=== PATIENT | female | born 1985 | race Caucasian/White ===

== ENCOUNTER 2017-03-14 13:30 | Inpatient (IN) | payer OTHER ==
[2017-03-14 14:54] VITALS: BMI 22.3
--- NOTE | 2017-03-14 16:56 | HP ---
CIWA Score - CIWA Score Nausea/Vomitin Muscle Tremors: 3 Anxiety: 3 Agitation: 3 Paroxysmal Sweats: 1-Minimal Palms Moist Orientation: 0-Oriented Tacttile Disturbances: 2-Mild Itch/Numbness/Burn Auditory Disturbances: 2-Mild Harshness/Frighten Visual Disturbances: 0-None Headache: 2-Mild CIWA-Ar Total Score: 19 Admission ROS BHS - HPI Chief Complaint: i need help to stop drinking alcohol refer fro [place] Allergies/Adverse Reactions: Allergies Allergy/AdvReac Type Severity Reaction Status Date / Time No Known Allergies Allergy Verified 03/14/17 15:59 History of Present Illness: this 31 years old female with alcohol dependence,seeking detox,seen in [place], last treatment 01/15 [facility] syncope seizure in anxiety,depression and insomnia multiple admissions keep relapsing longest period of sobriety 5 years Exam Limitations: No Limitations - Ebola screening Have you traveled outside of the country in the last 21 days: No (Y) Have you had contact with anyone from an Ebola affected area: No Have you been sick,other than usual withdrawal symptoms: No Do you have a fever: No - Review of Systems Constitutional: Loss of Appetite, Malaise, Night Sweats, Changes in sleep EENT: reports: Tearing, Nose Congestion Respiratory: reports: No Symptoms reported Cardiac: reports: Palpitations GI: reports: Diarrhea, Nausea, Vomiting, Abdominal cramping : reports: No Symptoms Reported Musculoskeletal: reports: Muscle Pain Integumentary: reports: Dryness Neuro: reports: Headache, Seizure Endocrine: reports: No Symptoms Reported Hematology: reports: No Symptoms Reported Psychiatric: reports: Anxious (insomnia), Depressed Patient History - Patient Medical History Hx Anemia: No Hx Asthma: No Hx Chronic Obstructive Pulmonary Disease (COPD): No Hx Cancer: No Hx Cardiac Disorders: No Hx Congestive Heart Failure: No Hx Hypertension: No Hx Hypercholesterolemia: No Hx Pacemaker: No HX Cerebrovascular Accident: No Hx Seizures: Yes (6 yrs ago) Hx Diabetes: No Hx Gastrointestinal Disorders: No Hx Liver Disease: No Hx Genitourinary Disorders: No Hx Sexually Transmitted Disorders: No Hx Renal Disease (ESRD): No Hx Hepatitis C: No Hx Depression: Yes (anxiety,insomnia) Hx Suicide Attempt: No Hx Schizophrenia: No Other Medical History: no suicidal,no homicidal - Patient Surgical History Past Surgical History: No - PPD History Previous Implant?: Yes Documented Results: Negative w/o proof Implanted On Prior R Admission?: No PPD to be Administered?: Yes - Reproductive History Patient is a Female of Child Bearing Age (11 -55 yrs old): Yes Last Menstrual Period: 03/07/17 Patient : No - Smoking Cessation Smoking history: Current every day smoker Have you smoked in the past 12 months: Yes Aproximately how many cigarettes per day: 10 Hx Chewing Tobacco Use: No Initiated information on smoking cessation: Yes 'Breaking Loose' booklet given: 03/14/17 - Substance & Tx. History Hx Alcohol Use: Yes Hx Substance Use: No Substance Use Type: Alcohol Hx Substance Use Treatment: Yes (methamphetamine) - Substances Abused Alcohol Route: Oral Frequency: Daily Amount used: Vodka( a emilia) Age of first use: 9 Date of Last Use: 03/13/17 Methamphetamine Route: Smoking Frequency: Daily Amount used: 8 ball Age of first use: 16 Date of Last Use: 03/10/17 Family Disease History - Family Disease History Family History: Denies Admission Physical Exam [facility] - Vital Signs Vital Signs: Vital Signs - 24 hr 03/14/17 14:51 Temperature 97.8 F Pulse Rate 108 H Respiratory 18 Rate Blood Pressure 138/79 - Physical General Appearance: Yes: Moderate Distress, Tremorous, Sweating, Anxious HEENTM: Yes: EOMI, ZAIN, Pharynx Normal Respiratory: Yes: Lungs Clear, Normal Breath Sounds, No Respiratory Distress Neck: Yes: Within Normal Limits, Supple, Trachea in good position Breast: Yes: Breast Exam Deferred Cardiology: Yes: Tachycardia Abdominal: Yes: Within Normal Limits, Normal Bowel Sounds, Non Tender, Soft Genitourinary: Yes: Within Normal Limits Back: Yes: Muscle Spasm Musculoskeletal: Yes: Back pain, Muscle Pain Extremities: Yes: Tremors Neurological: Yes: legal consultant II-XII NML intact, Fully Oriented, Alert, Motor Strength 5/5 Integumentary: Yes: Dry Lymphatic: Yes: Within Normal Limits - Diagnostic (1) Alcohol dependence with uncomplicated withdrawal Current Visit: Yes Status: Acute (2) Alcohol related seizure Current Visit: Yes Status: Acute (3) Syncope Current Visit: Yes Status: Acute (4) Insomnia secondary to depression with anxiety Current Visit: Yes Status: Acute Cleared for Admission [facility] - Detox or Rehab [facility] Level of Care: Medically Managed Detox Regimen/Protocol: Librium BHS Breath Alcohol Content Breath Alcohol Content: 0 Urine Pregancy Test - Result Urine Test Results: Negative- NO Line Present Urine Drug Screen - Results Drug Screen Negative: No Urine Drug Screen Results: TCA-Tricyclic Antidepress
[2017-03-14] MEDS ORDERED: MAGNESIUM HYDROX 2400MG/30ML ORAL SUSPENSION 30 ML CUP PO PRN (17:07)
[2017-03-14] MEDS ORDERED: MENTHOL/PHENOL 1 EACH UD MM PRN (17:07)
[2017-03-14] MEDS ORDERED: MAG HYDROX/AL HYDROX/SIMETH 30 ML UNIT-DOSE CUP PO PRN (17:07)
[2017-03-14] MEDS ORDERED: LOPERAMIDE HCL 2 MG CAPSULE PO PRN (17:07)
[2017-03-14] MEDS ORDERED: ACETAMINOPHEN 325 MG TABLET (FP) PO PRN (17:07)
[2017-03-14] MEDS ORDERED: MAGNESIUM CITRATE 300 ML BOTTLE PO PRN (17:07)
[2017-03-14] MEDS ORDERED: P-EPHED 60MG/TRIPROLIDI 2.5MG TABLET PO PRN (17:07)
[2017-03-14] MEDS ORDERED: IBUPROFEN 400 MG TABLET (FP) PO PRN (17:07)
[2017-03-14] MEDS ORDERED: guaiFENesin/D-METHORPHAN HB 10 ML UNIT-DOSE CUPS PO PRN (17:07)
[2017-03-14] MEDS ORDERED: NICOTINE POLACRILEX 2 MG GUM BC PRN (17:07)
[2017-03-14] MEDS ORDERED: chlordiazePOXIDE HCL 25 MG CAPSULE PO ONE (17:10)
[2017-03-14] MEDS: THIAMINE HCL 100 MG TABLET (FP) PO SCH (22:32)
[2017-03-14] MEDS: diphenhydrAMINE HCL 50 MG CAPSULE PO PRN (22:32)
[2017-03-14] MEDS: chlordiazePOXIDE HCL 25 MG CAPSULE PO SCH (22:32)
[2017-03-15] MEDS: chlordiazePOXIDE HCL 25 MG CAPSULE PO SCH ×4 (05:22→22:43)
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
[2017-03-15] MEDS ORDERED: TRIMETHOBENZAMIDE HCL 200MG/2ML INJ IM PRN (09:40)
[2017-03-15] MEDS: PRENATAL VITAMINS W/ FOLIC ACID TABLET (FP) PO SCH (10:55)
[2017-03-15 11:37] LABS: MCH 33.5 pg (25.7-33.7); MCHC 33.6 g/dl (32.0-36.0); MEAN CELL VOLUME 99.6 fl (80-96); MEAN PLT VOLUME 8.2 fl (7.5-11.1); PLATELET COUNT 193 K/MM3 (134-434); RDW 12.7 % (11.6-15.6); WHITE BLOOD COUNT 8.4 K/mm3 (4.0-10.0)
[2017-03-15 12:02] LABS: ALBUMIN 3.8 g/dl (3.4-5.0); ALK PHOS 63 U/L (45-117); ANION GAP 9 (8-16); BILIRUBIN,TOTAL 2.5 mg/dL (0.2-1.0); CALCIUM 9.1 mg/dL (8.5-10.1); CO2 34 mmol/L (21-32); CREATININE 0.6 mg/dL (0.55-1.02); GLUCOSE,RANDOM 93 mg/dL (74-106); SGOT/AST 88 U/L (15-37); SGPT/ALT 61 U/L (12-78); TOT PROT 7.5 g/dl (6.4-8.2)
[2017-03-15 12:17] LABS: HIV 1 & 2 AB NEGATIVE; HIV 1 AGp24 NEGATIVE
--- NOTE | 2017-03-15 15:11 | PN ---
S CIWA - CIWA Score Nausea/Vomitin Muscle Tremors: 3 Anxiety: 3 Agitation: 3 Paroxysmal Sweats: 1-Minimal Palms Moist Orientation: 0-Oriented Tacttile Disturbances: 1-Very Mild Itch/Numbness Auditory Disturbances: 1-Very Mild Visual Disturbances: 0-None Headache: 2-Mild CIWA-Ar Total Score: 17 BHS Progress Note (SOAP) Subjective: ALERT,IRRITABLE,ANXIOUS,INTERRUPTED SLEEP,TREMOR,,VOMITING Objective: 03/15/17 15:08 Vital Signs Temperature 97 F L 03/15/17 11:14 Pulse Rate 140 H 03/15/17 11:14 Respiratory Rate 16 03/15/17 11:14 Blood Pressure 121/84 03/15/17 11:14 O2 Sat by Pulse Oximetry (%) EKG NSR NO CHEST PAIN,NO SOB,NO DIZZINESS Laboratory Last Values WBC 8.4 K/mm3 (4.0-10.0) 03/15/17 07:45 RBC 4.01 M/mm3 (3.60-5.2) 03/15/17 07:45 Hgb 13.4 GM/dL (10.7-15.3) 03/15/17 07:45 Hct 39.9 % (32.4-45.2) 03/15/17 07:45 MCV 99.6 fl (80-96) H 03/15/17 07:45 MCH 33.5 pg (25.7-33.7) 03/15/17 07:45 MCHC 33.6 g/dl (32.0-36.0) 03/15/17 07:45 RDW 12.7 % (11.6-15.6) 03/15/17 07:45 Plt Count 193 K/MM3 (134-434) 03/15/17 07:45 MPV 8.2 fl (7.5-11.1) 03/15/17 07:45 Sodium 136 mmol/L (136-145) 03/15/17 07:45 Potassium 3.4 mmol/L (3.5-5.1) L 03/15/17 07:45 Chloride 93 mmol/L (98-107) L 03/15/17 07:45 Carbon Dioxide 34 mmol/L (21-32) H 03/15/17 07:45 Anion Gap 9 (8-16) 03/15/17 07:45 BUN 21 mg/dL (7-18) H 03/15/17 07:45 Creatinine 0.6 mg/dL (0.55-1.02) 03/15/17 07:45 Creat Clearance w eGFR > 60 (>60) 03/15/17 07:45 Random Glucose 93 mg/dL (74-106) 03/15/17 07:45 Calcium 9.1 mg/dL (8.5-10.1) 03/15/17 07:45 Total Bilirubin 2.5 mg/dL (0.2-1.0) H 03/15/17 07:45 AST 88 U/L (15-37) H 03/15/17 07:45 ALT 61 U/L (12-78) 03/15/17 07:45 Alkaline Phosphatase 63 U/L (45-117) 03/15/17 07:45 Total Protein 7.5 g/dl (6.4-8.2) 03/15/17 07:45 Albumin 3.8 g/dl (3.4-5.0) 03/15/17 07:45 RPR Titer Nonreactive (NONREACTIVE) 03/15/17 07:45 HIV 1&2 Antibody Screen Negative 03/15/17 07:45 HIV P24 Antigen Negative 03/15/17 07:45 Assessment: 03/15/17 15:09 WITHDRAWAL SYMPTOM Plan: CONTINUE DETOX,K DUR 20 MEQ PO DAILY FOR HYPOKALEMIA K IS 3.4 REPEAT CMP,INR IN M
[2017-03-15] MEDS ORDERED: POTASSIUM CHLORIDE TABS 10 MEQ TABLET.ER (FP) PO SCH (15:15)
[2017-03-15] MEDS ORDERED: POTASSIUM CHLORIDE TABS 20 MEQ TABLET.ER (FP) PO SCH (15:31)
[2017-03-15] MEDS: POTASSIUM CHLORIDE TABS 20 MEQ TABLET.ER (FP) PO SCH (15:40)
[2017-03-15] MEDS ORDERED: FLU VACCINE QUAD 60 MCG/0.5 ML (MDV 17-18) IM ONE ×2 (16:00→17:00)
[2017-03-15] MEDS: chlordiazePOXIDE HCL 25 MG CAPSULE PO PRN (20:28)
[2017-03-15] MEDS ORDERED: traZODone HCL 50 MG TABLET (FP) PO SCH (22:00)
[2017-03-15] MEDS: diphenhydrAMINE HCL 50 MG CAPSULE PO PRN (22:43)
[2017-03-15] MEDS: traZODone HCL 50 MG TABLET (FP) PO SCH (22:43)
[2017-03-15] MEDS: THIAMINE HCL 100 MG TABLET (FP) PO SCH (22:43)
[2017-03-16] MEDS: chlordiazePOXIDE HCL 25 MG CAPSULE PO SCH ×3 (06:00→17:10)
[2017-03-16 09:52] LABS: ALBUMIN 3.6 g/dl (3.4-5.0); ANION GAP 9 (8-16); CO2 31 mmol/L (21-32); GLUCOSE,RANDOM 99 mg/dL (74-106)
[2017-03-16 09:56] LABS: ALK PHOS 64 U/L (45-117); BILIRUBIN,TOTAL 1.1 mg/dL (0.2-1.0); CALCIUM 9.2 mg/dL (8.5-10.1); CREATININE 0.6 mg/dL (0.55-1.02); SGOT/AST 100 U/L (15-37); SGPT/ALT 80 U/L (12-78); TOT PROT 7.1 g/dl (6.4-8.2)
[2017-03-16 10:02] LABS: INR 0.94 (0.82-1.09); PROTHROMBIN TIME (PATIENT) 10.6 SEC (9.98-11.88)
[2017-03-16] MEDS: PRENATAL VITAMINS W/ FOLIC ACID TABLET (FP) PO SCH (11:00)
[2017-03-16] MEDS: POTASSIUM CHLORIDE TABS 20 MEQ TABLET.ER (FP) PO SCH (11:01)
--- NOTE | 2017-03-16 11:33 | PN ---
S CIWA - CIWA Score Nausea/Vomitin-No Nausea/No Vomiting Muscle Tremors: 4-Moderate,w/Arms Extend Anxiety: 3 Agitation: 3 Paroxysmal Sweats: 3 Orientation: 0-Oriented Tacttile Disturbances: 0-None Auditory Disturbances: 0-None Visual Disturbances: 0-None Headache: 0-None Present CIWA-Ar Total Score: 13 S Progress Note (SOAP) Subjective: agitation sweats shakes interrupted sleep irritable Objective: 03/16/17 11:32 Vital Signs Temperature 96.8 F L 03/16/17 11:22 Pulse Rate 123 H 03/16/17 11:22 Respiratory Rate 18 03/16/17 11:22 Blood Pressure 100/76 03/16/17 11:22 O2 Sat by Pulse Oximetry (%) Laboratory Tests 03/15/17 03/15/17 03/15/17 07:45 07:45 07:45 WBC 8.4 RBC 4.01 Hgb 13.4 Hct 39.9 MCV 99.6 H MCH 33.5 MCHC 33.6 RDW 12.7 Plt Count 193 MPV 8.2 PT with INR INR Sodium 136 Potassium 3.4 L Chloride 93 L Carbon Dioxide 34 H Anion Gap 9 BUN 21 H Creatinine 0.6 Creat Clearance w eGFR > 60 Random Glucose 93 Calcium 9.1 Total Bilirubin 2.5 H AST 88 H ALT 61 Alkaline Phosphatase 63 Total Protein 7.5 Albumin 3.8 RPR Titer HIV 1&2 Antibody Screen Negative HIV P24 Antigen Negative 03/15/17 03/16/17 03/16/17 07:45 07:00 07:00 WBC RBC Hgb Hct MCV MCH MCHC RDW Plt Count MPV PT with INR 10.60 INR 0.94 Sodium 138 Potassium 3.6 Chloride 98 Carbon Dioxide 31 Anion Gap 9 BUN 21 H Creatinine 0.6 Creat Clearance w eGFR > 60 Random Glucose 99 Calcium 9.2 Total Bilirubin 1.1 H D AST 100 H ALT 80 H D Alkaline Phosphatase 64 Total Protein 7.1 Albumin 3.6 RPR Titer Nonreactive HIV 1&2 Antibody Screen HIV P24 Antigen aaox3 ambulating no acute distress Assessment: 03/16/17 11:32 withdrawal sx Plan: continue detox increase fluids
[2017-03-16] MEDS: hydrOXYzine PAMOATE 50 MG CAPSULE (FP) PO PRN (13:55)
[2017-03-16] MEDS: chlordiazePOXIDE HCL 25 MG CAPSULE PO PRN (15:41)
[2017-03-16] MEDS ORDERED: ONDANSETRON *ODT* 4 MG TABLET SL PRN (15:59)
[2017-03-16] MEDS ORDERED: cloNIDine HCL 0.1 MG TABLET PO ONE (17:00)
[2017-03-16 18:25] LABS: URINE APPEARANCE SLCLOUDY; URINE BILIRUBIN NEGATIVE (NEGATIVE); URINE BLOOD NEGATIVE (NEGATIVE); URINE COLOR AMBER; URINE GLUCOSE (UA) NEGATIVE (NEGATIVE); URINE KETONE NEGATIVE (NEGATIVE); URINE NITRITE NEGATIVE (NEGATIVE); URINE PROTEIN NEGATIVE (NEGATIVE); URINE UROBILINOGEN 4.0 E.U/dl mg/dL (0.2-1.0)
[2017-03-16 22:24] LABS: URINE LEUK ESTERASE Negative (NEGATIVE)
[2017-03-16] MEDS: diphenhydrAMINE HCL 50 MG CAPSULE PO PRN (22:30)
[2017-03-16] MEDS: traZODone HCL 50 MG TABLET (FP) PO SCH (22:30)
[2017-03-16] MEDS: chlordiazePOXIDE 5 MG CAPSULE PO SCH (22:31)
[2017-03-16] MEDS: THIAMINE HCL 100 MG TABLET (FP) PO SCH (22:31)
[2017-03-17] MEDS: chlordiazePOXIDE 5 MG CAPSULE PO SCH ×3 (06:37→17:47)
--- NOTE | 2017-03-17 07:24 | EKG ---
Test Reason : Blood Pressure : / mmHG Vent. Rate : 091 BPM Atrial Rate : 091 BPM P-R Int : 134 ms QRS Dur : 088 ms QT Int : 382 ms P-R-T Axes : 062 059 045 degrees QTc Int : 469 ms NORMAL SINUS RHYTHM POSSIBLE LEFT ATRIAL ENLARGEMENT BORDERLINE ECG NO PREVIOUS ECGS AVAILABLE Confirmed by GRAEME RAM, HINA ([id number]) on 03/17/2017 7:23:47 AM Referred By: Jeevan Phillip Confirmed By:HINA BEDOLLA MD
[2017-03-17] MEDS: hydrOXYzine PAMOATE 50 MG CAPSULE (FP) PO PRN (08:45)
[2017-03-17] MEDS ORDERED: valACYclovir HCL 500 MG TABLET (FP) PO ONE (09:04)
--- NOTE | 2017-03-17 09:31 | PN ---
BHS Progress Note (SOAP) Subjective: I have a UTI sweats agitation cold sore on lip Objective: 03/17/17 09:26 Vital Signs Temperature 97.7 F 03/17/17 06:54 Pulse Rate 76 03/17/17 06:54 Respiratory Rate 18 03/17/17 06:54 Blood Pressure 89/65 03/17/17 06:54 O2 Sat by Pulse Oximetry (%) Laboratory Tests 03/15/17 03/15/17 03/15/17 07:45 07:45 07:45 WBC 8.4 RBC 4.01 Hgb 13.4 Hct 39.9 MCV 99.6 H MCH 33.5 MCHC 33.6 RDW 12.7 Plt Count 193 MPV 8.2 PT with INR INR Sodium 136 Potassium 3.4 L Chloride 93 L Carbon Dioxide 34 H Anion Gap 9 BUN 21 H Creatinine 0.6 Creat Clearance w eGFR > 60 Random Glucose 93 Calcium 9.1 Total Bilirubin 2.5 H AST 88 H ALT 61 Alkaline Phosphatase 63 Total Protein 7.5 Albumin 3.8 Urine Color Urine Appearance Urine pH Ur Specific [place] Urine Protein Urine Glucose (UA) Urine Ketones Urine Blood Urine Nitrite Urine Bilirubin Urine Urobilinogen Ur Leukocyte Esterase RPR Titer HIV 1&2 Antibody Screen Negative HIV P24 Antigen Negative 03/15/17 03/16/17 03/16/17 07:45 07:00 07:00 WBC RBC Hgb Hct MCV MCH MCHC RDW Plt Count MPV PT with INR 10.60 INR 0.94 Sodium 138 Potassium 3.6 Chloride 98 Carbon Dioxide 31 Anion Gap 9 BUN 21 H Creatinine 0.6 Creat Clearance w eGFR > 60 Random Glucose 99 Calcium 9.2 Total Bilirubin 1.1 H D AST 100 H ALT 80 H D Alkaline Phosphatase 64 Total Protein 7.1 Albumin 3.6 Urine Color Urine Appearance Urine pH Ur Specific [place] Urine Protein Urine Glucose (UA) Urine Ketones Urine Blood Urine Nitrite Urine Bilirubin Urine Urobilinogen Ur Leukocyte Esterase RPR Titer Nonreactive HIV 1&2 Antibody Screen HIV P24 Antigen 03/16/17 15:45 WBC RBC Hgb Hct MCV MCH MCHC RDW Plt Count MPV PT with INR INR Sodium Potassium Chloride Carbon Dioxide Anion Gap BUN Creatinine Creat Clearance w eGFR Random Glucose Calcium Total Bilirubin AST ALT Alkaline Phosphatase Total Protein Albumin Urine Color Al[place] Urine Appearance Slcloudy Urine pH 7.0 Ur Specific [place] 1.015 Urine Protein Negative Urine Glucose (UA) Negative Urine Ketones Negative Urine Blood Negative Urine Nitrite Negative Urine Bilirubin Negative Urine Urobilinogen 4.0 e.u/dl H Ur Leukocyte Esterase Negative RPR Titer HIV 1&2 Antibody Screen HIV P24 Antigen aaox3 ambulating no acute distress Assessment: 03/17/17 09:28 withdrawal sx Plan: continue detox increase fluids nitro capsules x 7 days valtrex 1000mg x one d/c in am
[2017-03-17] MEDS: PRENATAL VITAMINS W/ FOLIC ACID TABLET (FP) PO SCH (10:38)
[2017-03-17] MEDS: POTASSIUM CHLORIDE TABS 20 MEQ TABLET.ER (FP) PO SCH (10:38)
[2017-03-17] MEDS: NITROFURANTOIN MACROCRYSTAL 50 MG CAPSULE (FP) PO SCH ×3 (11:42→23:20)
[2017-03-17] MEDS: THIAMINE HCL 100 MG TABLET (FP) PO SCH (22:18)
[2017-03-17] MEDS: traZODone HCL 50 MG TABLET (FP) PO SCH (22:18)
[2017-03-17] MEDS: diphenhydrAMINE HCL 50 MG CAPSULE PO PRN (22:18)
[2017-03-17] MEDS: chlordiazePOXIDE HCL 10 MG CAPSULE PO SCH (22:19)
[2017-03-18] MEDS: NITROFURANTOIN MACROCRYSTAL 50 MG CAPSULE (FP) PO SCH (05:53)
[2017-03-18] MEDS: chlordiazePOXIDE HCL 10 MG CAPSULE PO SCH (05:53)
[2017-03-18 06:53] VITALS: BP 105/65; PULSE 79; TEMP 96.4
--- NOTE | 2017-03-18 09:11 | DS ---
[facility] Detox Discharge Summary Admission Date: 03/14/17 Discharge Date: 03/18/17 - History Present History: Alcohol Dependence Additional Comments: follow up with after care program as arrangement Pertinent Past History: alcohol related seizure syncope major depressive disorder recurrent episode alcohol induce sleep disorder - Physical Exam Results Vital Signs: Vital Signs Temperature 96.4 F L 03/18/17 06:52 Pulse Rate 79 03/18/17 06:52 Respiratory Rate 18 03/18/17 06:52 Blood Pressure 105/65 03/18/17 06:52 O2 Sat by Pulse Oximetry (%) - Treatment Hospital Course: Detox Protocol Followed, Detoxed Safely, Responded well, Discharged Condition Good - Medication Discharge Medications: Ambulatory Orders Trazodone HCl [Desyrel -] 50 mg PO HS #30 tablet 03/16/17 - Diagnosis (1) Alcohol dependence with uncomplicated withdrawal Current Visit: Yes Status: Chronic (2) Alcohol related seizure Current Visit: Yes Status: Acute (3) Syncope Current Visit: Yes Status: Acute (4) Insomnia secondary to depression with anxiety Current Visit: Yes Status: Acute (5) UTI (urinary tract infection) Current Visit: Yes Status: Acute - AMA Did Patient Leave Against Medical Advice: No
== END 2017-03-18 09:35 | disposition home or self-care (01) | DRG 775 ==
LOC: YASAS 13:30 → Y6N 16:33
PROVIDERS: ADMIT Internal Medicine; ATTEND Internal Medicine
PROC: HZ2ZZZZ Detoxification Services for Substance Abuse Treatment (ICD-10-PCS; principal; 2017-03-14)
DX: F10.230 Alcohol dependence with withdrawal, uncomplicated (principal); F33.1 Major depressive disorder, recurrent, moderate; F19.282 Other psychoactive substance dependence with psychoactive substance-induced sleep disorder; R55 Syncope and collapse; N39.0 Urinary tract infection, site not specified; Z86.69 Personal history of other diseases of the nervous system and sense organs
CPT/HCPCS: 36415; 80053; 81003; 85027; 85610; 86593; 87389; 90688; 93005; 93010; G0008